=== PATIENT | female | born 1970 | race African-American/Black ===

== ENCOUNTER 2017-09-04 10:42 | Emergency (ER) | payer MEDICAID, OTHER ==
[~2017-09-04] VITALS: Ht 165.1 cm; Wt 64.0 kg
[2017-09-04] MEDS ORDERED: IBUPROFEN 600MG TABLET PO ONE (12:30)
[2017-09-04 12:41] VITALS: BP 163/95
== END 2017-09-04 14:25 | disposition home or self-care (01) ==
LOC: ER 11:11
DX: J20.9 Acute bronchitis, unspecified (principal); M94.0 Chondrocostal junction syndrome [Tietze]; F17.200 Nicotine dependence, unspecified, uncomplicated; Z85.72 Personal history of non-Hodgkin lymphomas
CPT/HCPCS: 71045; 93005; 99284